=== PATIENT | male | born 1985 | race Caucasian/White ===

== ENCOUNTER 2017-04-23 23:28 | Emergency (ER) | payer OTHER ==
[~2017-04-23] VITALS: Ht 167.6 cm; Wt 65.8 kg
[2017-04-24 00:06] VITALS: BP 128/74
== END 2017-04-24 00:06 | disposition other institution (70) ==
LOC: ED 23:28
DX: S70.12XA Contusion of left thigh, initial encounter (principal); S20.219A Contusion of unspecified front wall of thorax, initial encounter; X58.XXXA Exposure to other specified factors, initial encounter; Y93.89 Activity, other specified; Y92.89 Other specified places as the place of occurrence of the external cause; Y99.8 Other external cause status
CPT/HCPCS: Q0092

== ENCOUNTER 2017-04-23 23:28 | Emergency (ER) | payer OTHER | END 2017-04-24 00:06 | disposition other institution (70) | LOC: ED 23:28 | DX: Z02.89 Encounter for other administrative examinations (principal) ==